=== PATIENT | female | born 1995 | race Asian ===

== ENCOUNTER 2020-09-03 18:28 | Emergency (ER) | payer SELFPAY ==
[~2020-09-03] VITALS: Ht 149.9 cm; Wt 40.8 kg
--- NOTE | 2020-09-03 18:46 | NUR ---
ED Nurse Note: Patient from home and walked in due to abd pain and pt currently on her mesntrual period. Pt states presence of urinary frequency but denies dysuria. No active vomiting. AAO x4,ambulatory with unlabored breathing.
--- NOTE | 2020-09-03 19:06 | NUR ---
HAND-OFF: Report given to Christi ZEPEDA.
[2020-09-03 19:07] VITALS: BP 108/67
--- NOTE | 2020-09-03 19:07 | NUR ---
ED Nurse Note: Report received from DUANE Sky. Pt is laying in bed in position c/o abdominal pain 10/10. Vital signs are stable. Pt is AAOx4.
[2020-09-03] MEDS ORDERED: Tylenol #3 tab (300mg/30mg) ORAL ONE (19:15)
[2020-09-03 19:27] LABS: APPEARANCE,URINE VERY CLOUDY; BILIRUBIN, URINE NEGATIVE (NEGATIVE); COLOR,URINE PALE YELLOW; GLUCOSE, URINE (UA) NEGATIVE (NEGATIVE); KETONES,URINE 3+ (NEGATIVE); LEUKOCYTE ESTERASE ,URINE 1+ (NEGATIVE); NITRITE,URINE NEGATIVE (NEGATIVE); PH,URINE 8 (4.5-8.0); PROTEIN,URINE 1+ (NEGATIVE); UROBILINOGEN,URINE 1 MG/DL (0.0-1.0)
--- NOTE | 2020-09-03 19:39 | NUR ---
ED Nurse Note: US tech at bedside
--- NOTE | 2020-09-03 20:18 | Diagnostic Imaging Report ---
Transabdominal and endovaginal pelvic ultrasound History: Pain Findings: Uterus is anteverted measuring 9 x 4.9 x 5.7 cm. Thickened heterogeneous endometrium at 1.7 cm. 3 x 1.1 cm fluid collection seen in the lower uterine segment. No definite decidual reaction, slightly irregular border. Negative for junk sac or pole. Small amount of fluid is also seen in the level of the fundal portion of the endometrium. Cervix is closed. Bilateral ovaries are not seen. Negative for pelvic free fluid. Impression: 1. Anteverted uterus with thickened 1.7 cm fundal portion of the endometrium with trace fluid. 2. 3 x 1.1 cm fluid collection in the lower uterine segment. This may be secondary to retained products of conception. No yolk sac or pole are seen. Irregular appearance to the contour. This is likely nonprogression of . 3. Please clinically correlate with beta-hCG. Short-term follow-up is suggested to evaluate for progression
[2020-09-03] MEDS ORDERED: TYLENOL EXTRA500 MG ORAL (20:37)
[2020-09-03 20:50] VITALS: BP 112/67
--- NOTE | 2020-09-03 20:50 | NUR ---
ER DISCHARGE NOTE: Patient is cleared to be discharged per ERMD, pt is aox4, on room air, with stable vital signs. pt was given dc and prescription instructions, pt was able to verbalize understanding, pt id band and iv site removed without complications. pt is able to ambulate with steady gait. pt took all belongings.
--- NOTE | 2020-09-06 07:55 | Emergency Room Report ---
History of Present Illness General Chief Complaint: Abdominal Pain Source: Patient Present Illness HPI 25-year-old female presents to ED with abdominal pain. Bleeding. Started with her period but has persisted for a few weeks now. Pain is cramping, 9 out of 10, nonradiating. Denies fevers or chills. Denies nausea or vomiting. No other aggravating relieving factors. Denies any other associated symptoms Allergies: Coded Allergies: No Known Allergies (Unverified , 09/03/20) COVID-19 Screening Contact w/high risk pt: No Experienced COVID-19 symptoms?: No COVID-19 Testing performed [employer] REP: Yes COVID-19 Screening: Negative COVID-19 COVID-19 Testing Source: clinic Patient History Past Medical History: none Past Surgical History: none Pertinent Family History: none Social History: Denies: smoking, alcohol use, drug use Last Menstrual Period: 2 months Now: No Immunizations: UTD Reviewed Nursing Documentation: PMH: Agreed; PSxH: Agreed Nursing Documentation-PMH Past Medical History: No Stated History Review of Systems All Other Systems: negative except mentioned in HPI Physical Exam Vital Signs Date Time Temp Pulse Resp B/P (MAP) Pulse Ox O2 Delivery O2 Flow Rate FiO2 09/03/20 18:36 98.1 69 20 98/54 (69) 98 Room Air Sp02 EP Interpretation: reviewed, normal General Appearance: no apparent distress, alert, GCS 15, non-toxic Head: normocephalic, atraumatic Eyes: bilateral eye normal inspection, bilateral eye PERRL ENT: hearing grossly normal, normal pharynx, no angioedema, normal voice Neck: full range of motion, supple/symm/no masses Respiratory: chest non-tender, lungs clear, normal breath sounds, speaking full sentences Cardiovascular #1: regular rate, rhythm, no edema Cardiovascular #2: 2+ carotid (R), 2+ carotid (L), 2+ radial (R), 2+ radial (L), 2+ dorsalis pedis (R), 2+ dorsalis pedis (L) Gastrointestinal: normal bowel sounds, soft, non-distended, no guarding, no rebound, tenderness - Suprapubic Rectal: deferred Genitourinary: normal inspection, no CVA tenderness Musculoskeletal: back normal, normal range of motion, gait/station normal, non- tender Neurologic: alert, motor strength/tone normal, oriented x3, sensory intact, responsive, speech normal Psychiatric: judgement/insight normal, memory normal, mood/affect normal, no suicidal/homicidal ideation Reflexes: 3+ bicep (R), 3+ bicep (L), 3+ tricep (R), 3+ tricep (L), 3+ knee (R), 3+ knee (L) Lymphatic: no adenopathy Medical Decision Making Diagnostic Impression: Primary Impression: Threatened miscarriage ER Course Hospital Course 25-year-old female presents to ED complaining of lower abdominal pain Differential diagnoses include: gastrits, gastroenterits, ectopic , ovarian torsion/cyst, UTI Clinical course Patient placed on stretcher in ED. After initial history and physical I ordered UA, pain meds positive. Patient states she was not aware ultrasound ordered which showed no definitive IUP. Either early versus retained products. I discussed findings with patient. Recommend close follow-up with [facility] for serial ultrasounds. Safe for discharge and close outpatient follow-up. I will provide referrals Diagnosis - threatened miscarriage Stable and discharged to home. Followup with [facility]. Return to ED if symptoms recur or worsen Labs Test 09/03/20 18:45 Urine Color Pale yellow Urine Appearance Very cloudy Urine pH 8 (4.5-8.0) Urine Specific [place] 1.015 (1.005-1.035) Urine Protein 1+ (NEGATIVE) Urine Glucose (UA) Negative (NEGATIVE) Urine Ketones 3+ (NEGATIVE) Urine Blood 5+ (NEGATIVE) Urine Nitrite Negative (NEGATIVE) Urine Bilirubin Negative (NEGATIVE) Urine Urobilinogen 1 MG/DL (0.0-1.0) Urine Leukocyte Esterase 1+ (NEGATIVE) Urine RBC 2-4 /HPF (0 - 2) Urine WBC 0 /HPF (0 - 2) Urine Squamous Epithelial Cells Few /LPF (NONE/OCC) Urine Bacteria Moderate /HPF (NONE) Urine HCG, Qualitative Positive (NEGATIVE) CT/MRI/US Diagnostic Results CT/MRI/US Diagnostic Results : Imaging Test Ordered: OB US Impression Procedure: US OB 1ST Trimester w/Transvag Transabdominal and endovaginal pelvic ultrasound History: Pain Findings: Uterus is anteverted measuring 9 x 4.9 x 5.7 cm. Thickened heterogeneous endometrium at 1.7 cm. 3 x 1.1 cm fluid collection seen in the lower uterine segment. No definite decidual reaction, slightly irregular border. Negative for junk sac or pole. Small amount of fluid is also seen in the level of the fundal portion of the endometrium. Cervix is closed. Bilateral ovaries are not seen. Negative for pelvic free fluid. Impression: 1. Anteverted uterus with thickened 1.7 cm fundal portion of the endometrium with trace fluid. 2. 3 x 1.1 cm fluid collection in the lower uterine segment. This may be secondary to retained products of conception. No yolk sac or pole are seen. Irregular appearance to the contour. This is likely nonprogression of . 3. Please clinically correlate with beta-hCG. Short-term follow-up is suggested to evaluate for progression Last Vital Signs Date Time Temp Pulse Resp B/P (MAP) Pulse Ox O2 Delivery O2 Flow Rate FiO2 09/03/20 20:50 98.8 76 20 112/67 98 Room Air Status: improved Disposition: HOME, SELF-CARE Condition: Stable Scripts Acetaminophen* (TYLENOL EXTRA STRENGTH*) 500 Mg Tablet 500 MG ORAL Q8H PRN for Prn Headache/Temp > 101, #30 TAB 0 Refills Prov: Richard Joaquin MD 09/03/20 Referrals: NOT CHOSEN IPA/,REFERRING (PCP) Sravani Kumar Comp. [facility] Patient Instructions: Threatened Miscarriage, [id number] Richard Joaquin MD Sep 06, 2020 07:55
== END 2020-09-03 20:50 | disposition home or self-care (01) ==
LOC: EMR 19:01
DX: O20.0 Threatened abortion (principal); Z3A.00 Weeks of gestation of pregnancy not specified
CPT/HCPCS: 76801; 76817; 81003; 81025; 87086; 99283